=== PATIENT | male | born 1990 | race Hispanic/Latino ===

== ENCOUNTER 2017-12-10 02:48 | Emergency (ER) | payer SELFPAY ==
[2017-12-10 03:34] VITALS: BMI 21.7
[2017-12-10 03:45] VITALS: BP 147/89; PULSE 96; RESP 16; TEMP 97.9; O2SAT 100
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
[2017-12-10 04:10] LABS: BASO % 0.3 % (0.0-2.0); EOS % 0.2 % (0.0-4.0); HEMOGLOBIN 15.6 g/dL (12.0-18.0); LYMPH # 2.2 K/uL (1.0-4.3); LYMPH % 31.8 % (20.0-40.0); MEAN CELL VOLUME 85.9 fl (80.0-94.0); MEAN CORPUSCULAR HEMOGLOBIN 29.9 pg (27.0-31.0); MEAN CORPUSCULAR HGB CONC 34.7 g/dL (33.0-37.0); MEAN PLATELET VOLUME 8.5 fl (7.2-11.7); MONO # 0.8 K/uL (0.0-0.8); NEUT # 3.9 K/uL (1.8-7.0); NEUT % 56.7 % (50.0-75.0); NRBC % 0.1 % (0.0-0.0); RBC 5.21 Mil/uL (4.40-5.90); RED CELL DISTRIBUTION WIDTH 12.6 % (11.5-14.5); WHITE BLOOD COUNT 6.9 K/uL (4.8-10.8)
[2017-12-10 04:13] LABS: URINE BILIRUBIN NEGATIVE (NEGATIVE); URINE BLOOD NEGATIVE (NEGATIVE); URINE CLARITY CLEAR (Clear); URINE COLOR COLORLESS (YELLOW); URINE GLUCOSE (UA) NEG (Normal); URINE LEUKOCYTE ESTERASE NEG Leu/uL (Negative); URINE NITRATE NEGATIVE (NEGATIVE); URINE PROTEIN NEGATIVE (NEGATIVE); URINE UROBILINOGEN 0.2-1.0 mg/dL (0.2-1.0)
[2017-12-10 04:20] LABS: PARTIAL THROMBOPLASTIN TIME 37.2 Seconds (25.6-37.1); PROTHROMBIN TIME 10.8 Seconds (9.8-13.1)
[2017-12-10 04:24] LABS: BLOOD UREA NITROGEN 9 mg/dl (9-20); CALCIUM 9.1 mg/dL (8.4-10.2); GFR AFRICAN-AMERICAN > 60; GFR NON-AFRICAN AMERICAN > 60
[2017-12-10] MEDS ORDERED: Lidocaine 1% Inj (20ml) ONE (05:35)
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
== END 2017-12-10 06:38 | disposition home or self-care (01) ==
LOC: H.ER 02:48
DX: S01.01XA Laceration without foreign body of scalp, initial encounter (principal); S09.90XA Unspecified injury of head, initial encounter; V03.10XA Pedestrian on foot injured in collision with car, pick-up truck or van in traffic accident, initial encounter; Y92.410 Unspecified street and highway as the place of occurrence of the external cause
CPT/HCPCS: 12001; 70450; 71045; 72125; 80048; 81003; 85025; 85610; 85730; 86850; 86900; 99282; G0480

== ENCOUNTER 2017-12-21 17:25 | Emergency (ER) | payer SELFPAY ==
[2017-12-21 17:25] VITALS: BMI 21.7
[2017-12-21 17:37] VITALS: BP 147/77; PULSE 85; RESP 16; TEMP 98.4; O2SAT 100
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
== END 2017-12-21 18:05 | disposition home or self-care (01) ==
LOC: H.ER 17:25
DX: Z48.02 Encounter for removal of sutures (principal)

== ENCOUNTER 2018-10-11 21:24 | Emergency (ER) | payer OTHER ==
[2018-10-11 21:24] VITALS: BMI 21.7
[2018-10-11 23:06] VITALS: BP 153/96; PULSE 87; RESP 16; TEMP 98.2; O2SAT 98
[2018-10-12] MEDS ORDERED: Tmp-Smz 800 mg-160 mg DS Tab PO STA (01:16)
--- NOTE | 2018-10-12 01:20 | ED PDOC ---
Upper Extremity Pain/Injury Time Seen by Provider: 10/12/18 00:49 Chief Complaint (Nursing): Finger,Hand,&Wrist Chief Complaint (Provider): right hand 2nd digit pain History Per: Patient History/Exam Limitations: no limitations Onset/Duration Of Symptoms: Days (1 week) Current Symptoms Are (Timing): Still Present Additional History Per: Patient Additional Complaint(s): 27 y/o male presents for evaluation of pain/swelling to right hand 2nd digit x 1 week. Patient states he made small incision last week and pus drained, but noticed it to fill back up again. Admits to biting nails. Denies fever, nausea/vomiting, numbness/weakness right upper extremity. Patient works in healthcare and was in contact with someone with MRSA last week and would like to be tested for it. Past Medical History Reviewed: Historical Data, Nursing Documentation, Vital Signs Vital Signs: Last Vital Signs Temp 98.2 F 10/11/18 23:02 Pulse 87 10/11/18 23:02 Resp 16 10/11/18 23:02 BP 153/96 H 10/11/18 23:02 Pulse Ox 98 10/11/18 23:02 - Medical History PMH: No Chronic Diseases - Surgical History Surgical History: No Surg Hx - Family History Family History: States: Unknown Family Hx - Home Medications Home Medications: Ambulatory Orders Medication Instructions Recorded Cephalexin [cephalexin] 500 mg PO Q6 #39 cap 10/12/18 Ibuprofen [Motrin Tab] 800 mg PO Q8 PRN #15 tab 10/12/18 Sulfamethoxazole/Trimethoprim 1 tab PO BID #19 tab 10/12/18 [Bactrim DS 800 mg-160 mg] - Allergies Allergies/Adverse Reactions: Allergies Allergy/AdvReac Type Severity Reaction Status Date / Time No Known Allergies Allergy Verified 10/11/18 23:02 Review of Systems ROS Statement: Except As Marked, All Systems Reviewed And Found Negative Musculoskeletal: Positive for: Hand Pain (right hand 2nd digit) Physical Exam - Reviewed Nursing Documentation Reviewed: Yes Vital Signs Reviewed: Yes - Physical Exam Appears: Positive for: Well, Non-toxic, No Acute Distress Extremity: Positive for: Swelling (yellow purulent drainage pocket noted medial aspect nailbed right hand 2nd digit with + surrounding edema, erythema. FROM. Distal NV/motor intact) Neurologic/Psych: Positive for: Alert, Oriented (x3). Negative for: Motor/Sensory Deficits - ECG O2 Sat by Pulse Oximetry: 98 - Progress ED Course And Treament: Ibuprofen PO, Keflex PO, Bactrim DS PO Incision made using #11 blade with + purulent drainage/blood Bacitracin applied/bandaged Patient educated on wound care, advised warm soaks 3-5 times daily Rx Bactrim DS, Keflex, Ibuprofen provided Advised follow up within 48 hours Return precautions given Disposition - Clinical Impression Clinical Impression: Paronychia - Patient ED Disposition Is Patient to be Admitted: No Counseled Patient/Family Regarding: Studies Performed, Diagnosis, Need For Followup, Rx Given - Disposition Disposition: Routine/Home Disposition Time: 01:44 Condition: STABLE Prescriptions: Cephalexin [cephalexin] 500 mg PO Q6 #39 cap Ibuprofen [Motrin Tab] 800 mg PO Q8 PRN #15 tab PRN Reason: Pain, Moderate (4-7) Sulfamethoxazole/Trimethoprim [Bactrim DS 800 mg-160 mg] 1 tab PO BID #19 tab Instructions: Paronychia
[2018-10-12] MEDS ORDERED: Tmp-Smz 800 mg-160 mg DS Tab ONE (01:47)
== END 2018-10-12 01:55 | disposition home or self-care (01) ==
LOC: H.ER 21:24
DX: L03.011 Cellulitis of right finger (principal)